=== PATIENT | female | born 1960 | race Caucasian/White ===

== ENCOUNTER → 2023-11-10 15:06 | Outpatient (REF) | payer BC, SELFPAY ==
[2023-11-10 16:00] LABS: ALT (SGPT) 40 U/L (0-35); AST (SGOT) 43 U/L (14-36); Albumin 4.3 g/dl (3.5-5.0); Alkaline Phosphatase 84 U/L (38-126); Blood Urea Nitrogen 19 mg/dl (7-17); Calcium 9.8 mg/dl (8.4-10.2); Carbon Dioxide 31 mmol/L (22-30); Chloride 95 mmol/L (98-107); Glucose 99 mg/dl (70-99); Potassium 4.1 mmol/L (3.5-5.1); Sodium 132 mmol/L (135-145); Total Bilirubin 0.7 mg/dl (0.2-1.3); Total Protein 7.2 g/dl (6.3-8.2); eGFR > 60.00
== END ==
LOC: REG 15:06
PROVIDERS: ATTENDING PHYSICIAN Family Medicine
DX: E87.1 Hypo-osmolality and hyponatremia (principal)
CPT/HCPCS: 36415; 80053

== ENCOUNTER → 2023-12-11 12:33 | Outpatient (REF) | payer BC, SELFPAY ==
[2023-12-11 13:17] LABS: Hematocrit 39.5 % (37.0-47.0); Hemoglobin 13.3 g/dL (12.0-16.0); Mean Corp Hgb Conc. 33.7 g/dL (33.0-37.0); Mean Corpuscular Volume 89.2 fL (81.0-99.0); Mean Platelet Volume 10.4 fL (7.4-10.4); Platelet Count 264 10^3/uL (130-400); Red Blood Cell Count 4.43 10^6/uL (4.20-5.40); Red Cell Dist. Width 12.9 % (11.5-14.5)
[2023-12-11 13:38] LABS: ALT (SGPT) 26 U/L (0-35); AST (SGOT) 34 U/L (14-36); Albumin 4.7 g/dl (3.5-5.0); Alkaline Phosphatase 79 U/L (38-126); Blood Urea Nitrogen 22 mg/dl (7-17); Carbon Dioxide 30 mmol/L (22-30); Chloride 96 mmol/L (98-107); Glucose 91 mg/dl (70-99); HDL Cholesterol 83 mg/dl; LDL Cholesterol, Calculated 65 mg/dl; Potassium 4.1 mmol/L (3.5-5.1); Sodium 134 mmol/L (135-145); Total Bilirubin 0.5 mg/dl (0.2-1.3); Total Cholesterol 160 mg/dl (50-199); Total Protein 7.2 g/dl (6.3-8.2); Triglyceride 60 mg/dl (10-149); Very Low Density Lipoprotein 12 mg/dl (0-30); eGFR > 60.00
[2023-12-11 13:54] LABS: Free T4 1.06 ng/dl (0.78-2.19)
[2023-12-11 14:08] LABS: TSH 0.96 uIU/ml (0.47-4.68)
== END ==
LOC: REG 12:33
PROVIDERS: ATTENDING PHYSICIAN Family Medicine
DX: I10 Essential (primary) hypertension (principal); E78.2 Mixed hyperlipidemia; R53.83 Other fatigue
CPT/HCPCS: 36415; 80053; 80061; 84439; 84443; 85027

== ENCOUNTER → 2024-01-07 13:46 | Outpatient (REF) | payer BC, SELFPAY | LOC: WDC 13:46 | PROVIDERS: ATTENDING PHYSICIAN Family Medicine | DX: Z12.31 Encounter for screening mammogram for malignant neoplasm of breast (principal) | CPT/HCPCS: 77063; 77067 ==

== ENCOUNTER 2024-02-10 06:13 | Day surgery (SDC) | payer BC, SELFPAY ==
[2024-02-10 06:15] VITALS: BP 116/76; BMI 22.7
[2024-02-10 06:34] VITALS: BMI 22.7
[2024-02-10] MEDS: Pyridium 200 MG PO (06:39)
[2024-02-10] MEDS: NORMOSOL-R 1000 IV (06:43)
[2024-02-10 07:36] VITALS: BP 122/92
[2024-02-10 07:45] VITALS: BP 110/79
[2024-02-10 08:00] VITALS: BP 107/84
[2024-02-10 08:15] VITALS: BP 101/59
[2024-02-10 08:30] VITALS: BP 116/71
== END 2024-02-10 08:38 | disposition home or self-care (01) ==
LOC: SDS 06:13
PROVIDERS: ATTENDING PHYSICIAN Obstetrics & Gynecology
DX: G24.9 Dystonia, unspecified (principal); R10.2 Pelvic and perineal pain
CPT/HCPCS: 20553; J0585

== ENCOUNTER 2024-05-21 14:28 | Emergency (ER) | payer BC, SELFPAY ==
--- NOTE | 2024-05-21 15:50 | ED.GENMED ---
History of Present Illness
<Baldemar Valenciaalexeyherbert, DO - Last Filed: 05/21/24 18:08>
General
Chief Complaint: Fall
Time Seen by Provider: 05/21/24 15:06
History of Present Illness
History of Present Illness:
HPI: Patient presents due to ongoing pain in the low back/sacrum after a fall from 10 weeks ago. She was initially seen in urgent care and x-rays were confirmed by radiologist as suspicion for a nondisplaced fracture at S3. She has not followed up
with orthopedics. She has ongoing pain and there is been virtually no improvement.
EXAM:
GENERAL: Well appearing in no distress
HEENT: Moist oral mucosa
BACK: No significant L-spine tenderness in the midline, there is mild lower sacral/coccyx tenderness
NEUROLOGIC: Excellent strength all extremities, no coordination deficits
PSYCHIATRIC: Appropriate mental status, normal insight and judgement
EXTREMITIES: Nontender, no edema, moves all extremities equally
SKIN: No rash, no lesions
TIME OF INITIAL ENCOUNTER: 3:50 PM
NUMBER AND COMPLEXITY OF PROBLEMS ADDRESSED AT THE ENCOUNTER
� Chronic conditions affecting care: Blood pressure, anxiety/depression
� Acute Exacerbation and/or Progression of Chronic Illness:
� Differential Diagnosis includes: Nonhealing fracture, fracture not seen on x-ray, coccydynia, spine malignancy less likely
AMOUNT AND/OR COMPLEXITY OF DATA TO BE REVIEWED AND ANALYZED
� I performed an independent evaluation of and my interpretation is:
EKG:
CT: I personally reviewed CT imaging and radiology interpretation
X-rays:
Laboratory Studies:
Other:
� Review of other/old records: I reviewed the x-ray report read by Dr. Bui from 04/10/2024
� Clinical information was obtained by an independent historian: None needed
� Prescriptions/Medications Considered but not given:
� Further testing considered but not performed:
RISK OF COMPLICATIONS AND/OR MORBIDITY OR MORTALITY OF PATIENT MANAGEMENT
� Social determinants of health affecting care: She lives at home by herself and works full-time
� Discussion with other providers:
� Escalation of care including admission/observation vs risk of discharge considered: As patient has ongoing pain, will obtain CT imaging for further evaluation as she is very concerned that something 'was missed'. CT imaging
reviewed with patient. Recommend Ortho follow-up.
Past History
<Baldemar Lacy, DO - Last Filed: 05/21/24 18:08>
Past History
ED Past Medical History: HTN and Psychiatric (Anxiety, depression)
ED Past Surgical History: Cholecystectomy, Gynecological (Hysterectomy) and Tonsilectomy
Social History
Tobacco: Former smoker
Alcohol: None
Drug: None
Phy Exam
<Rin Delgado MD, Resident - Last Filed: 05/21/24 20:09>
General Physical Exam
General Presentation: well appearing and no apparent distress
General Skin: warm and dry
General Habitus: normal
General Mental: alert
Cardiovascular Exam
Cardiovascular Exam: regular rate/rhythm, no edema, no gallop, no murmur and normal peripheral pulses
Pulmonary Exam
Pulmonary Exam: lungs clear, no respiratory distress, no rales, no crackles, no rhonchi and no wheezing
Neurological Exam
Neurological Exam: alert, oriented x3, no motor deficits, no sensory deficits and normal gait
Musculoskeletal Exam
Musculoskeletal Exam: full ROM (of hip) and other (no significant tenderness over spine or sacrum)
Skin Exam
Skin Exam: normal color and warm/dry
Course
<Baldemar Lacy, DO - Last Filed: 05/21/24 18:08>
Orders/Labs/Results
Orders:
Orders
05/21/24 15:54
CT Pelvis W/o Iv Contrast Urgent
Comment:
Reason For Exam: fall
05/21/24 16:04
CT Lumbar Spine W/o Iv Contras Urgent
Comment:
Reason For Exam: fall
Vital Signs
Initial and Last Documented VS:
Initial Vital Signs
Temp Pulse Resp Pulse Ox
98.3 F 102 18 99
05/21/24 14:30 05/21/24 14:30 05/21/24 14:30 05/21/24 14:30
Last Documented Vital Signs
Temp Pulse Resp Pulse Ox
98.3 F 102 18 99
05/21/24 14:30 05/21/24 14:30 05/21/24 14:30 05/21/24 14:30
<Rin Delgado MD, Resident - Last Filed: 05/21/24 20:09>
Orders/Labs/Results
Orders:
Orders
05/21/24 15:54
CT Pelvis W/o Iv Contrast Urgent
Comment:
Reason For Exam: fall
05/21/24 16:04
CT Lumbar Spine W/o Iv Contras Urgent
Comment:
Reason For Exam: fall
Vital Signs
Initial and Last Documented VS:
Initial Vital Signs
Temp Pulse Resp Pulse Ox
98.3 F 102 18 99
05/21/24 14:30 05/21/24 14:30 05/21/24 14:30 05/21/24 14:30
Last Documented Vital Signs
Temp Pulse Resp Pulse Ox
98.3 F 102 18 99
05/21/24 14:30 05/21/24 14:30 05/21/24 14:30 05/21/24 14:30
<Rin Delgado MD, Resident - Last Filed: 05/21/24 20:09>
*Critical Care Note
Total Time (30-74mins, 75-104mins- exclusive of procedures): Not Applicable
ED Attending Note
<Baldemar Lacy, DO - Last Filed: 05/21/24 18:08>
-
Portions of this chart may have been created with voice recognition software.� Occasional wrong word or��sound alike� substitutions may have occurred due to the inherent limitations of voice recognition software.
Discharge Plan
Departure
Patient Disposition: Home (Routine Discharge)
Date of Disposition: 05/21/24
Time of Disposition: 18:05
Patient with high blood pressure during this ER visit?: Yes
Discharge Problem:
Closed sacral fracture
Prescriptions:
No Action
venlafaxine 150 mg Tablet Extended Release 24hr
187 mg PO DAILY
Amitriptyline-Baclofen cream
1 applic topical BID
Rx Instructions:
2-2% cream in lidoderm
multivitamin Tablet
1 tab PO DAILY
lorazepam 1 mg Tablet
1 mg PO TIDPRN PRN (Reason: anxiety)
losartan-hydrochlorothiazide 100-25 mg Tablet
1 tab PO DAILY
Referrals:
Kulwant Gordon MD [Active] - Follow up in 2-3 days
Joy Warner PA [Family Provider] -
Activity Restrictions/Additional Instructions:
CT of the pelvis shows 'a transverse fracture through the superior aspect of the S3 vertebral segment with some adjacent sclerosis suggesting healing response, there is also bilateral sacral alar fractures larger on the left compared to the right
also with healing response, there is no diastases of the SI joints, there is no other pelvic bone fracture'. CT of the lumbar spine shows some disc bulging in the lower lumbar spine with some neuroforaminal narrowing. I have given the contact
information for orthopedics such as Dr. Gordon.
Interventions
Interventions:
*Risk Screen - Suicide Last Done: 05/21/24 15:24
*General Assessment Last Done: 05/21/24 15:24
*Neglect/Abuse Screening Last Done: 05/21/24 15:24
*Nursing Disposition Last Done: 05/21/24 18:22
ED-Musculoskeletal Assessment Last Done: 05/21/24 15:24
ED- Neurological Assessment Last Done: 05/21/24 15:24
ED-Skin Assessment Last Done: 05/21/24 15:24
Discharge Date and Time
Discharge Date/Time: 05/21/24 18:23
Print Language: LATVIAN
== END 2024-05-21 18:23 | disposition home or self-care (01) ==
LOC: EMR 14:28
PROVIDERS: EMERGENCY PHYSICIAN Emergency Medicine; FAMILY PHYSICIAN Family Medicine
DX: S32.10XA Unspecified fracture of sacrum, initial encounter for closed fracture (principal); W19.XXXA Unspecified fall, initial encounter; I10 Essential (primary) hypertension; F41.9 Anxiety disorder, unspecified; F32.A Depression, unspecified; Z87.891 Personal history of nicotine dependence; Z90.49 Acquired absence of other specified parts of digestive tract; Z88.5 Allergy status to narcotic agent; Z88.2 Allergy status to sulfonamides
CPT/HCPCS: 99284; 72131; 72192

== ENCOUNTER → 2024-08-18 09:40 | Outpatient (REF) | payer BC, SELFPAY | LOC: CLAB 09:40 | PROVIDERS: Pathology Anatomic Pathology & Clinical Pathology; ATTENDING PHYSICIAN Dermatology Dermatopathology; OTHER PHYSICIAN Physician Assistant Medical | DX: D48.5 Neoplasm of uncertain behavior of skin (principal) | CPT/HCPCS: 88305 ==

== ENCOUNTER → 2024-09-10 07:10 | Outpatient (REF) | payer OTHER, BC, SELFPAY | LOC: PAVMRI 07:10 | PROVIDERS: ATTENDING PHYSICIAN Nurse Practitioner Adult Health; FAMILY PHYSICIAN Family Medicine | DX: M79.601 Pain in right arm (principal); M25.511 Pain in right shoulder | CPT/HCPCS: 73221 ==

== ENCOUNTER → 2025-04-04 14:54 | Outpatient (REF) | payer OTHER, BC, SELFPAY ==
[2025-04-04 15:46] LABS: Hematocrit 38.2 % (37.0-47.0); Hemoglobin 12.8 g/dL (12.0-16.0); Mean Corp Hgb Conc. 33.5 g/dL (33.0-37.0); Mean Corpuscular Volume 90.1 fL (81.0-99.0); Nucleated Red Blood Cells % 0.4 %; Platelet Count 230 10^3/uL (130-400); Red Cell Dist. Width 12.9 % (11.5-14.5)
[2025-04-04 16:14] LABS: ALT (SGPT) 33 U/L (0-35); AST (SGOT) 29 U/L (14-36); Albumin 4.6 g/dl (3.5-5.0); Alkaline Phosphatase 80 U/L (38-126); Blood Urea Nitrogen 18 mg/dl (7-17); Calcium 9.7 mg/dl (8.4-10.2); Carbon Dioxide 29 mmol/L (22-30); Chloride 101 mmol/L (98-107); Glucose 90 mg/dl (70-99); HDL Cholesterol 65 mg/dl; LDL Cholesterol, Calculated 61 mg/dl; Potassium 4.1 mmol/L (3.5-5.1); Sodium 133 mmol/L (135-145); Total Protein 6.9 g/dl (6.3-8.2); Very Low Density Lipoprotein 9 mg/dl (0-30); eGFR > 60.00
[2025-04-04 16:30] LABS: Vitamin D, 25-OH*** 44.3 ng/mL (30-80)
[2025-04-04 16:38] LABS: TSH 0.88 uIU/ml (0.47-4.68)
[2025-04-05 09:35] LABS: Glycohemoglobin (HgbA1c) 5.5 % (4.0-5.6)
== END ==
LOC: REG 14:54
PROVIDERS: ATTENDING PHYSICIAN Family Medicine
DX: E55.9 Vitamin D deficiency, unspecified (principal); E78.5 Hyperlipidemia, unspecified
CPT/HCPCS: 36415; 80053; 80061; 82306; 83036; 84443; 85025

== ENCOUNTER → 2025-06-15 14:06 | Outpatient (REF) | payer BC, SELFPAY ==
[2025-06-15 15:09] LABS: Hematocrit 39.9 % (37.0-47.0); Hemoglobin 13.3 g/dL (12.0-16.0); Mean Corp Hgb Conc. 33.3 g/dL (33.0-37.0); Mean Corpuscular Volume 91.1 fL (81.0-99.0); Nucleated Red Blood Cells % 0 %; Platelet Count 243 10^3/uL (130-400); Red Cell Dist. Width 13.0 % (11.5-14.5)
[2025-06-15 16:23] LABS: ALT (SGPT) 25 U/L (0-35); AST (SGOT) 28 U/L (14-36); Albumin 4.7 g/dl (3.5-5.0); Alkaline Phosphatase 79 U/L (38-126); Blood Urea Nitrogen 21 mg/dl (7-17); Calcium 9.9 mg/dl (8.4-10.2); Carbon Dioxide 30 mmol/L (22-30); Chloride 97 mmol/L (98-107); Glucose 91 mg/dl (70-99); Potassium 4.4 mmol/L (3.5-5.1); Sodium 133 mmol/L (135-145); Total Protein 7.2 g/dl (6.3-8.2); eGFR > 60.00
[2025-06-15 16:29] LABS: C-Reactive Protein < 5.00 mg/L (0.0-10.00)
[2025-06-16 10:50] LABS: Rheumatoid Agglutinin Less Than 10 IU (<10 IU)
== END ==
LOC: REG 14:06
PROVIDERS: ATTENDING PHYSICIAN Internal Medicine; FAMILY PHYSICIAN Family Medicine
DX: M25.50 Pain in unspecified joint (principal); M25.60 Stiffness of unspecified joint, not elsewhere classified; M35.9 Systemic involvement of connective tissue, unspecified
CPT/HCPCS: 36415; 80053; 85025; 85652; 86140; 86200; 86430

== ENCOUNTER → 2025-06-15 14:29 | Outpatient (REF) | payer SELFPAY | LOC: RAD 14:29 | PROVIDERS: ATTENDING PHYSICIAN Nurse Practitioner Family; FAMILY PHYSICIAN Family Medicine | DX: S09.90XA Unspecified injury of head, initial encounter (principal) | CPT/HCPCS: 70450 ==

== ENCOUNTER 2025-06-27 07:24 | Outpatient (RCR) | payer OTHER, SELFPAY | END 2025-06-27 23:59 | disposition home or self-care (01) | LOC: RPT 07:24 | PROVIDERS: ATTENDING PHYSICIAN Nurse Practitioner; FAMILY PHYSICIAN Chiropractor | DX: R42 Dizziness and giddiness (principal); Z73.6 Limitation of activities due to disability; F07.81 Postconcussional syndrome; W22.8XXD Striking against or struck by other objects, subsequent encounter; Y93.89 Activity, other specified; Y92.238 Other place in hospital as the place of occurrence of the external cause; Y99.0 Civilian activity done for income or pay | CPT/HCPCS: 97112; 97161 ==

== ENCOUNTER → 2025-07-06 19:39 | Outpatient (REF) | payer BC, SELFPAY | LOC: WDC 19:39 | PROVIDERS: ATTENDING PHYSICIAN Family Medicine | DX: Z12.31 Encounter for screening mammogram for malignant neoplasm of breast (principal) | CPT/HCPCS: 77063; 77067 ==